=== PATIENT | female | born 1985 | race Caucasian/White ===

== ENCOUNTER 2018-03-19 13:21 | Outpatient (REF) | payer BC, SELFPAY ==
--- NOTE | 2018-03-19 12:00 | PAPFT_PTH ---
PATIENT: Sandeep Bobo LOC: [facility] U#:[id number] AGE/SX: 33/F ROOM: RE03/19/[address]: MONI Rajan : 1985 BED: DIS: 03/19/2018 SPEC #: [id number] RECD: 03/19/18 16:50 STATUS: TIM REJenni #: [id number] JAYMIE: 03/19/18 12:[address]: Leticia Nunez DEPT: [facility]CLUDES THE [facility] Cytology RECD BY: Allison Guerra ENTERED: 03/19/18 16:51 SP TYPE: PAPFT SIDNEY DR: Fernanda Pike APRN Tissues: 1 - CX/ENDOCX FOR PAP SMEARS Procedures: PAP THIN PREP/UVM Screening HPV DNA PROBE Comments: [id number]
== END 2018-03-19 13:41 ==
LOC: LBN 13:21
PROVIDERS: PCP Nurse Practitioner Family; Visit Provider Nurse Practitioner Family
DX: Z12.4 Encounter for screening for malignant neoplasm of cervix (principal); Z11.51 Encounter for screening for human papillomavirus (HPV)
CPT/HCPCS: 88142; 87624

== ENCOUNTER 2019-05-27 11:33 | Emergency (ER) | payer BC, SELFPAY ==
[2019-05-27 11:35] VITALS: BP 136/73; PULSE 82; TEMP 36.7; O2SAT 100
--- NOTE | 2019-05-27 12:23 | W.ED.GENAD ---
Discharge Plan Disposition Patient Disposition: HOME Condition: Stable Discharge Details Chief Complaint: Orthopedic Clinical Impression: Pain in right hip, Sciatica Primary Care Provider: Fernanda Pike ED Provider: Renetta Gallego Home Meds and New Rx's Prescriptions: New prednisone 20 mg tablet See Rx Instructions .ROUTE .COMPLEX Qty: 12 RF: 0 methocarbamol 500 mg tablet 500 mg PO Q6H PRN (Reason: muscle spasm) Qty: 14 RF: 0 Continued sennosides-docusate sodium [Colace 2-In-1] 8.6-50 mg tablet 1 tab PO BID PRNRF: 0 norethindrone (contraceptive) 0.35 mg tablet 0.35 mg PO DAILY Qty: 84 RF: 3 ibuprofen [Motrin IB] 200 MG tablet 200 mg PO PRN RF: 0 sumatriptan succinate 50 MG tablet 50 mg PO ONCE MDD 200 PRNQty: 30 RF: 0 acyclovir 800 mg tablet 800 mg PO BID Qty: 10 RF: 3 Discharge Instructions Instructions: Sciatica (ED), Leg Pain (ED) Additional Instructions: Take the steroids until finished. Take the muscle relaxer as needed and directed for pain and muscle spasm. You can also take 600 mg of ibuprofen every 6 hours and Tylenol every 4 hours as needed for pain. You can purchase [id number] lidocaine patches to help as needed and directed for pain. Follow-up with your scheduled appointment with orthopedics on June 06. Return to the emergency department with any worsening or new concerning symptoms such as fever, vomiting, abdominal pain, leg numbness, weakness or worsening pain. Discharge Data Discharge Date/Time-TO BE ENTERED AT DEPARTURE: 05/27/19 14:08 Discharge Physician: Renetta Gallego Medical Decision Making 1149 -- 34-year-old female presents with right hip pain for the past 4 months after a long hike, now worse over the past 2 weeks. Patient states she went for a hike in January and developed right hip pain. She was seen by her primary care doctor who referred her to physical therapy who diagnosed her with bursitis. She states she has physical therapy twice weekly. For the past 2 weeks she has had worsening pain that has spread from her right hip down to her right anterior posterior thigh. She states the pain is sharp, deep and aching. She uses a TENS unit and takes ibuprofen 2-3 times daily without relief lately. She denies fever, vomiting, abdominal pain, urinary or fecal incontinence, saddle anesthesia, leg numbness. She does admit to weakness but feels this is due to pain and decreased tolerance with exercises during physical therapy. Vitals within normal limits. Patient appears nontoxic. She has tenderness to palpation along her right buttock. No focal deficits. Neurovascularly intact. Abdomen nontender. Differential diagnosis includes hip strain, hip bursitis, piriformis syndrome, sciatica, arthritis. Patient is young and generally healthy without chronic medical problems or risk for immunocompromise, so doubt occult fracture. Patient is tearful during exam and feels that she wants an x-ray. Will obtain a right hip pelvis x-ray and give a dose of Toradol, Valium, prednisone, lidocaine patch. Urine test negative. 1345 --x-ray reviewed and negative. Patient states she feels better. She was able to stand and ambulate with improvement in pain. She feels good to go home. We will send her with a prescription for Robaxin and prednisone. She is advised on the importance of alternating ice and heat, Tylenol and Motrin. She has an appointment with orthopedics on June 06. Usual and customary return precautions given prior to discharge. Medical Records Medical records reviewed: Yes I reviewed the patient's medical records. Imaging Data Radiologic Study: Radiologist's impression: XR HIP RT COMPLETE AP PELVIS CLINICAL HISTORY: chronic R hip pain, r/o fx TECHNIQUE: COMPARISON: No exams were available for comparison FINDINGS: Two views were obtained. No fracture seen. HPI General Mode of arrival: ambulatory. Date/Time Provider Initiated Documentation: 05/27/19 11:37. Limitations to Documentation: no limitations. Information obtained by: patient. History of Present Illness 34 year old F presents to the emergency department with the chief complaint of R hip pain , Quality is described as aching and sharp, Patient started experiencing this month(s) (4) and it has been constant. No relieving factors improve symptom(s), Movement worsens symptoms and Other factors that worsen symptoms (weight bearing, ambulation) . Patient notes denies cough, diaphoresis, fever/chills, headaches, loss of appetite, malaise, nausea/vomiting, rash, seizure, shortness of breath, syncope and weakness. Patient did receive the following treatments prior to arrival, NSAID (motrin 6 hours ago) Related Data Home Medications Medication Instructions Recorded Confirmed ibuprofen [Motrin IB] 200 mg PO PRN 03/05/17 05/27/19 sumatriptan succinate 50 mg PO ONCE PRN #30 tab-cap MDD 03/05/17 05/27/19 200 sennosides 8.6 mg-docusate sodium 1 tab PO BID PRN 03/19/18 05/27/19 50 mg tablet acyclovir 800 mg tablet 800 mg PO BID #10 tab-cap 01/05/19 05/27/19 norethindrone (contraceptive) 0.35 0.35 mg PO DAILY #84 tab 03/22/19 05/27/19 mg tablet methocarbamol 500 mg PO Q6H PRN #14 tab 05/27/19 prednisone See Rx Instructions .ROUTE 05/27/19 .COMPLEX #12 tab Previous Rx's Medication Instructions Recorded acyclovir 800 mg tablet 800 mg PO BID #10 tab-cap 01/05/19 norethindrone (contraceptive) 0.35 0.35 mg PO DAILY #84 tab 03/22/19 mg tablet methocarbamol 500 mg PO Q6H PRN #14 tab 05/27/19 prednisone See Rx Instructions .ROUTE 05/27/19 .COMPLEX #12 tab Allergies Allergy/AdvReac Type Severity Reaction Status Date / Time azithromycin Allergy RASH Unverified 05/27/19 11:38 Lip Stick/Lip Gloss AdvReac Intermediate Has cold Uncoded 05/27/19 11:38 sore outbreaks General Stated Complaint: Orthopedic FARHEEN: 3 Review of Systems All systems reviewed & are unremarkable except as noted in HPI and below Constitutional Constitutional: Reports as per HPI, Denies chills and Denies fever(s) Eyes Eyes: Denies blurry vision ENT Ears, Nose, Mouth, and Throat: Denies dizziness, Denies sore throat and Denies throat swelling Cardiovascular Cardiovascular: Denies chest pain and Denies dyspnea Respiratory Respiratory: Denies cough and Denies dyspnea Gastrointestinal Gastrointestinal: Denies abdominal pain, Denies diarrhea and Denies vomiting Genitourinary Genitourinary: Denies hematuria and Denies dysuria Musculoskeletal Musculoskeletal: Denies back pain and Denies numbness Integumentary/Breasts Skin/Breast: Denies lesions and Denies rash Neurologic Neurologic: Denies dizziness, Denies focal weakness and Denies numbness Allergic/Immunologic Allergic/Immunologic: Denies throat swelling [facility] Medical History Anal fissure (Resolved) Sphincterotomy 02/25/10 Anxiety (Chronic) Atypical nevus (Chronic) Constipation (Chronic) HSV (herpes simplex virus) infection (Inactive) Migraine with aura (Chronic) W/ fatigue Surgical History Cholecystectomy (Resolved ~02/2011) History of rectal sphincterotomy (Resolved ~02/25/10) Family History Father Alcohol abuse Maternal Grandmother Neoplasm Colon dx'ed ~63 y/o Mother COPD (chronic obstructive pulmonary disease) Brother Essential hypertension Great Grandmother , CVA Diabetes Neoplasm Ovarian CA Stroke Social History Smoking/Tobacco Use Status: Never Alcohol Intake: current Alcohol Intake frequency: a few times a month Substance use type: does not use Seatbelt use: always Do you feel safe at home: Yes Do you feel safe in your relationship?: Yes Female Reproductive History Menstrual control method: pills History History 2 Para 2 Hx # Term Pregnancies Multiple births Hx # Pregnancies Ectopic pregnancies AB induced Hx Number of Living Children AB spontaneous Exam Const General: cooperative, healthy appearing and no acute distress HENMT Head: normal to inspection Face and sinus: normal facial exam Eyes General: appearance normal, both eyes and all related structures EOM: EOM intact bilaterally Neck Neck: normal visual inspection and No submandibular swelling Lymphatic: no lymphadenopathy noted Chest Chest: normal inspection of the chest and no tenderness Resp Effort & Inspection: normal respiratory effort and able to speak in complete sentences Auscultation: clear to auscultation bilaterally Cardio Rate: regular rate Rhythm: regular rhythm GI Inspection: normal to inspection Palpation: soft, not firm, not rigid and nontender Auscultation: normal bowel sounds Back/Spine/Pelvis Thoracic/Lumbar Spine: thoracic and lumbar spine normal to inspection, straight leg raise negative bilaterally, No paraspinal tenderness and No lumbar spinal tenderness Pelvis: no pain with anterior-posterior compression and no pain with lateral compression Back/spine/pelvis image: 1. Tenderness to palpation along right midline buttock. Skin General skin exam: no rashes or lesions noted Neuro General: alert, awake and oriented x3 Cognition: normal cognition Speech: speech normal Motor: muscle tone normal throughout and strength 5/5 throughout Sensory Exam: no sensory deficits noted DTR's: Rt Patellar: 1+, Lt Patellar: 1+, Rt Ankle: 1+ and Lt Ankle: 1+ Other: Bilateral PT/DP pulses intact. Extrem General: normal to inspection, full ROM, normal capillary refill, no calf tenderness bilaterally and no edema Psych Appearance: grossly normal Mental Status: mental status grossly normal Speech and Movement: speech and movement normal Affect: normal affect Course Vital Signs Vital signs: Vital Signs Temperature 98.1 F 05/27/19 11:35 Pulse 82 05/27/19 11:35 Blood Pressure 136/73 05/27/19 11:35 Pulse Oximetry 100 05/27/19 11:35 Temperature 98.1 F 05/27/19 11:35 Pulse 82 05/27/19 11:35 Respiratory Effort 05/27/19 11:59 Blood Pressure 136/73 05/27/19 11:35 Blood Pressure Position Supine 05/27/19 11:35 Pulse Oximetry 100 05/27/19 11:35 Oxygen Delivery Method Room Air 05/27/19 11:35 Oxygen Flow Rate 0 05/27/19 11:35 Pain Level 9 05/27/19 11:35
[2019-05-27] MEDS: diazePAM 5 MG TAB PO (12:36)
[2019-05-27] MEDS: predniSONE 20 MG TAB 60 MG PO (12:37)
[2019-05-27] MEDS: Ketorolac 60 MG/2 ML VIAL IM (12:44)
[2019-05-27 12:45] LABS: Bilirubin Negative (Negative); Blood Negative (Negative); Clarity Clear (Clear); Glucose Negative (Negative); Ketones Negative (Negative); Leukocyte Esterase Negative (Negative); Nitrite Negative (Negative); Urobilinogen 0.2 EU/dL (Up TO 0.2)
--- NOTE | 2019-05-27 12:57 | DI.RAD_ITS ---
EXAM: XR HIP RT COMPLETE AP PELVIS CLINICAL HISTORY: chronic R hip pain, r/o fx TECHNIQUE: COMPARISON: No exams were available for comparison FINDINGS: Two views were obtained. No fracture seen. IMPRESSION:
[2019-05-27 13:29] VITALS: BP 100/55; PULSE 73; RESP 16; TEMP 36.6
[2019-05-27 13:30] VITALS: O2SAT 99
[2019-05-27] MEDS: Lidocaine 5% Patch 1 PATCH (13:55)
[2019-05-27 14:04] VITALS: BP 105/66; PULSE 67; RESP 16; TEMP 36.5; O2SAT 100
== END 2019-05-27 14:08 | disposition home or self-care (01) ==
PROVIDERS: Emergency Provider Physician Assistant; PCP Nurse Practitioner Family
DX: M25.551 Pain in right hip (principal); M54.31 Sciatica, right side
CPT/HCPCS: 81025; 96372; 99284; 73502; 81003; J1885; J7512

== ENCOUNTER 2019-06-01 02:14 | Outpatient (CLI) | payer BC, SELFPAY ==
--- NOTE | 2019-06-01 14:43 | DI.MRI_ITS ---
EXAM: MR LOWER JOINT RT WO CLINICAL HISTORY: SEVERE CONTINUED RIGHT HIP PAIN M25.559 PAIN IN HIP. TECHNIQUE: Multiplanar multisequence MRI was performed. COMPARISON: XR HIP RT COMPLETE AP PELVIS from 05/27/2019 FINDINGS: The marrow signal is normal. There are no joint effusions. The muscle signal appears normal. The S I joints and pubic symphysis are unremarkable. No tendon or labral abnormality is identified. The ut erus and right ovary appear normal. There is a left ovarian dominant follicle. There is a physiolog ic amount of free fluid in the cul-de-sac. Urinary bladder is unremarkable. IMPRESSION: Negative MRI of the pelvis and right hip.
== END 2019-06-01 02:34 ==
PROVIDERS: PCP Nurse Practitioner Family; Visit Provider Physician Assistant
DX: M25.551 Pain in right hip (principal)
CPT/HCPCS: 73721

== ENCOUNTER 2020-02-27 09:54 | Outpatient (CLI) | payer BC, SELFPAY ==
[2020-02-29 02:55] LABS: Patient Race White; SARS-CoV-2 RNA Undetected (Undetected); SARS-CoV-2 Specimen Source Nasopharynx
== END 2020-02-27 10:14 ==
PROVIDERS: PCP Nurse Practitioner Family; Visit Provider Nurse Practitioner Family
DX: J06.9 Acute upper respiratory infection, unspecified (principal)
CPT/HCPCS: U0003

== ENCOUNTER 2022-06-04 11:54 | Outpatient (REF) | payer OTHER, SELFPAY ==
[2022-06-05 02:00] LABS: COVID-19 RT-PCR UVMMC Result Negative (Negative)
[2022-06-05 02:06] LABS: Influenza A RNA Result Positive (Negative); Influenza B RNA Result Negative (Negative); RSV RNA Result Negative (Negative)
== END 2022-06-04 11:55 | disposition home or self-care (01) ==
LOC: LBN 11:54
PROVIDERS: PCP Nurse Practitioner Family; Visit Provider Nurse Practitioner
DX: Z20.822 Contact with and (suspected) exposure to COVID-19 (principal); R05.9 Cough, unspecified; R09.89 Other specified symptoms and signs involving the circulatory and respiratory systems; R53.83 Other fatigue
CPT/HCPCS: 87631; U0003

== ENCOUNTER 2022-09-18 14:39 | Outpatient (CLI) | payer OTHER, SELFPAY ==
[2022-09-18 10:06] LABS: Calculated LDL 61 mg/dL (<100); Cholesterol 148 mg/dL (<200); HDL Cholesterol 79 mg/dL (40-60); Triglyceride 41 mg/dL (<150)
== END 2022-09-18 14:40 | disposition home or self-care (01) ==
LOC: LBO 14:42
PROVIDERS: PCP Nurse Practitioner Family; Visit Provider Nurse Practitioner Family
DX: Z13.220 Encounter for screening for lipoid disorders (principal)
CPT/HCPCS: 36415; 80061

== ENCOUNTER 2022-12-24 11:22 | Outpatient (REF) | payer OTHER, SELFPAY ==
--- NOTE | 2022-12-24 09:15 | PAPFT_PTH ---
PATIENT: Sandeep Bobo LOC: [facility] U#:[id number] AGE/SX: 37/F ROOM: RE12/24/[address]: Monica Hitchcock NP : 1985 BED: DIS: 12/24/2022 SPEC #: [id number] RECD: 12/24/22 13:01 STATUS: TIM AHN #: [id number] JAYMIE: 12/24/22 09:[address]: Monica Hitchcock NP DEPT: [facility] Cytology RECD BY: Allison Guerra ENTERED: 12/24/22 13:01 SP TYPE: PAPFT OTHR DR: Fernanda Pike APRN Tissues: 1 - CX/ENDOCX FOR PAP SMEARS Procedures: PAP THIN PREP/UVM Screening HPV DNA PROBE Comments: [id number]
== END 2022-12-24 11:23 | disposition home or self-care (01) ==
LOC: LBN 11:22
PROVIDERS: PCP Nurse Practitioner Family; Visit Provider Nurse Practitioner Women's Health
DX: Z12.4 Encounter for screening for malignant neoplasm of cervix (principal); Z11.51 Encounter for screening for human papillomavirus (HPV)
CPT/HCPCS: 88142; 87624

== ENCOUNTER 2024-06-01 03:32 | Outpatient (CLI) | payer OTHER, SELFPAY ==
--- NOTE | 2024-06-01 12:47 | DI.MAMMO_ITS ---
Exam(s) MAMMO SCREENING EXAM: MAMMO SCREENING CLINICAL HISTORY: screening TECHNIQUE: Bilateral full field digital CC and MLO mammographic images were obtained with 3D tomosyn thesis and utilizing computer aided detection (CAD). COMPARISON: This is a baseline examination. FINDINGS: Masses/Architectural Distortion: None seen. Microcalcifications: No suspicious pleomorphic-type are seen. Skin Thickening/Nipple Retraction: None. IMPRESSION: 1. There is no evidence of malignancy seen at this time. 2. Unless there is more urgent need, screening mammography is recommended, as per [employer] guidelines. BI-RADS Category 1 - Negative Breast Density - Category C - Heterogeneously dense Breast density category C or D implies that the patient has dense breast tissue. Dense breast tissue is very common and is not abnormal but dense breast tissue can make it harder to find cancer on a ma mmogram. Also, dense breast tissue may increase their breast cancer risk. This information about the result of the mammogram report was provided to the patient to raise their awareness. Use this report when you speak with the patient about their risks for breast cancer, which includes their family hist ory. At that time, you may recommend for more screening tests (Ultrasound or MRI) as they might be us eful based on their risk. A negative radiographic report should not delay biopsy if a dominant or clinically suspicious mass is present. Up to ten percent of cancers are not identified on mammography. A negative report may reinforce clinical impression. Adenosis and dense breasts may obscure an underlying neoplasm. False positive reports average 6 to 10%. Patient will receive a letter notifying them of these results.
== END 2024-06-01 03:52 ==
LOC: DI 03:32
PROVIDERS: PCP Nurse Practitioner Family; Visit Provider Nurse Practitioner Women's Health
DX: Z12.31 Encounter for screening mammogram for malignant neoplasm of breast (principal); R92.333 Mammographic heterogeneous density, bilateral breasts
CPT/HCPCS: 77063; 77067